=== PATIENT | female | born 1960 | race Caucasian/White ===

== ENCOUNTER 2018-10-27 06:20 | Day surgery (SDC) | payer OTHER ==
[2018-10-27] MEDS ORDERED: MIDAZOLAM HCL 2 MG/2 ML VIAL ONE ×2 (08:27→08:48)
[2018-10-27] MEDS ORDERED: MEPERIDINE (NF) 100 MG/ML INJ ONE ×2 (08:47→08:48)
[2018-10-27] MEDS ORDERED: fentaNYL CITRATE/PF 100 MCG/2 ML INJ. ONE (08:48)
[2018-10-27] MEDS ORDERED: diphenhydrAMINE HCL 25 MG TABLET PO ONE ×2 (08:48→08:59)
[2018-10-27] MEDS ORDERED: LACTATED RINGERS 1,000 ML IV.SOLN IV ONE (08:48)
[2018-10-27] MEDS ORDERED: CLINDAMYCIN PHOSPHATE 900 MG/6 ML VIAL ONE (08:48)
== END 2018-10-27 10:00 | disposition home or self-care (01) ==
LOC: OPSURG 06:20
PROVIDERS: ATTEND Physical Medicine & Rehabilitation
DX: M54.5 Low back pain (principal); M79.604 Pain in right leg; M79.605 Pain in left leg
CPT/HCPCS: 63650; J2175; J2250; J3010; J7120; Q0163